=== PATIENT | male | born 1990 | race Caucasian/White ===

== ENCOUNTER 2020-12-31 09:53 | Outpatient (REF) | payer OTHER, SELFPAY | END 2020-12-31 09:54 | disposition home or self-care (01) | LOC: HO.LAB 09:53 | PROVIDERS: Visit Provider Internal Medicine | DX: Z20.822 Contact with and (suspected) exposure to COVID-19 (principal) | CPT/HCPCS: 36415; C9803; U0003; U0005 ==

== ENCOUNTER 2021-02-19 14:37 | Outpatient (REF) | payer OTHER, SELFPAY ==
[2021-02-19 15:44] LABS: COVID-19 Test Negative (Negative); IDNOW Serial# 55D5AD1C
== END 2021-02-19 14:38 | disposition home or self-care (01) ==
LOC: HO.LAB 14:37
PROVIDERS: Visit Provider Internal Medicine
DX: Z20.822 Contact with and (suspected) exposure to COVID-19 (principal)
CPT/HCPCS: 36415; 87635; C9803

== ENCOUNTER 2021-02-22 11:09 | Outpatient (REF) | payer OTHER, SELFPAY ==
[2021-02-22 11:42] LABS: COVID-19 Test Positive (Negative)
== END 2021-02-22 11:10 | disposition home or self-care (01) ==
LOC: HO.LAB 11:09
PROVIDERS: Visit Provider Internal Medicine
DX: Z20.822 Contact with and (suspected) exposure to COVID-19 (principal)
CPT/HCPCS: 36415; 87635; C9803

== ENCOUNTER 2021-03-05 15:11 | Outpatient (REF) | payer OTHER, SELFPAY | END 2021-03-05 15:12 | disposition home or self-care (01) | LOC: HO.LAB 15:11 | PROVIDERS: Visit Provider Internal Medicine | DX: Z20.822 Contact with and (suspected) exposure to COVID-19 (principal) | CPT/HCPCS: C9803; U0003; U0005 ==

== ENCOUNTER 2021-11-09 15:43 | Emergency (ER) | payer SELFPAY ==
--- NOTE | ~2021-11-09 | CT_ITS ---
EXAMINATION: CT CERVICAL SPINE WITHOUT CONTRAST CLINICAL INFORMATION: Trauma COMPARISON: None TECHNIQUE: Axial images through cervical spine without contrast. Sagittal and coronal reconstructions on the technologist workstation. This CT examination was performed using dose optimization techniques as appropriate, variously including the following: *Automated exposure control *Adjustment of mA and/or kV according to patient size (this includes techniques or standardized protocols for targeted exams where dose is matched to indication/reason for exam; i.e. 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 Bone alignment is normal. No fracture or dislocation is seen. Disc spaces are normal. Prevertebral soft tissues are normal. Visualized lung apices are clear. CT/CT cervical spine wo con IMPRESSION: No fracture or dislocation. Fleischner guidelines were followed.
--- NOTE | ~2021-11-09 | XR_ITS ---
EXAMINATION: XR HAND, LEFT CLINICAL INFORMATION: Trauma COMPARISON: None TECHNIQUE: PA, lateral, and oblique views of the left hand. FINDINGS: No acute fracture or dislocation. Well-corticated ossification lateral to the third distal tuft again noted, similar to the 2010 study. XR/XR hand LT min 3V IMPRESSION: No acute fracture or dislocation.
--- NOTE | ~2021-11-09 | XR_ITS ---
EXAMINATION: XR THORACOLUMBAR SPINE CLINICAL INFORMATION: Trauma COMPARISON: None TECHNIQUE: Frontal and 2 lateral views of the thoracic spine. FINDINGS: The vertebral alignment is normal. No intrinsic bony abnormality. The disc heights and neural foramina are well maintained. The endplates and posterior elements are normal. No fracture or subluxation. The surrounding prevertebral soft tissues are unremarkable. XR/XR thoracic spine 2V IMPRESSION: No compression fractures or subluxations are identified. The disc spaces are preserved. No endplate changes are seen. The prevertebral soft tissues are normal. The foramina are patent.
[2021-11-09 16:02] VITALS: BP 147/84; PULSE 78; RESP 17; TEMP 35.8; O2SAT 98
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
[2021-11-09 16:08] VITALS: BP 155/90; PULSE 75; O2SAT 100; BMI 29.5
[2021-11-09 17:19] VITALS: BP 138/77; PULSE 70; RESP 18; TEMP 36.7; O2SAT 99
[2021-11-09] MEDS: Ketorolac Tromethamine 30 MG/ML VIAL IM (18:40)
--- NOTE | 2021-11-09 18:40 | PC.NURSE ---
collar was cleared by . pt was able to ambulate to br slowly and safely. numbness in fingers remains
== END 2021-11-09 19:23 | disposition home or self-care (01) ==
PROVIDERS: Emergency Provider Emergency Medicine
DX: S13.4XXA Sprain of ligaments of cervical spine, initial encounter (principal); S29.012A Strain of muscle and tendon of back wall of thorax, initial encounter; S60.222A Contusion of left hand, initial encounter; M54.50 Low back pain, unspecified; V43.52XA Car driver injured in collision with other type car in traffic accident, initial encounter; Y93.9 Activity, unspecified; Y92.410 Unspecified street and highway as the place of occurrence of the external cause; Y99.9 Unspecified external cause status; Z79.899 Other long term (current) drug therapy
CPT/HCPCS: 72070; 72125; 73130; 96372; 99283; 99284; J1885